=== PATIENT | male | born 1955 | race African-American/Black ===

== ENCOUNTER 2018-05-12 13:52 | Outpatient (RCR) | payer OTHER ==
[~2018-05-12 13:52] MED LIST: FLEXERIL 1010 MG/TAB PO; NO HOME MEDICATIONS; NORCO 325 MG-51 TAB PO
[2018-06-30] MEDS ORDERED: PRINIVIL10 MG PO (09:39)
[2018-06-30] MEDS ORDERED: LEVAQUIN 5500 MG/TA1 PO (09:40)
== END 2018-07-20 | disposition home or self-care (01) ==
LOC: WSOH
DX: S46.012A Strain of muscle(s) and tendon(s) of the rotator cuff of left shoulder, initial encounter (principal); X50.0XXA Overexertion from strenuous movement or load, initial encounter; Y92.214 College as the place of occurrence of the external cause; Y99.0 Civilian activity done for income or pay; Z79.899 Other long term (current) drug therapy

== ENCOUNTER 2018-05-27 12:05 | Inpatient (IN) | payer BC ==
[~2018-05-27] VITALS: Ht 175.3 cm; Wt 75.6 kg
[2018-06-30] VITALS (11 sets, daily range): BP systolic 132–162; BP diastolic 70–97; PULSE 74–112; TEMP 97.2–98.6
[2018-06-30] MEDS ORDERED: PRINIVIL10 MG PO (09:39)
[2018-06-30] MEDS ORDERED: LEVAQUIN 5500 MG/TA1 PO (09:40)
[2018-07-01 02:49] VITALS: BP 128/76; PULSE 109; TEMP 99.5
[2018-07-01 06:31] LABS: BASO % 0.1 % (0.0-2.0); GRAN # 8.1 (1.4-6.5); GRAN % 81.3 % (42.2-75.2); HEMOGLOBIN 12.7 g/dl (13.5-18.0); LYMPH # 0.8 (1.2-3.4); LYMPH % 7.9 % (20.0-51.0); MEAN CELL VOLUME 86 fl (80.0-100.0); MEAN CORPUSCULAR HEMOGLOBIN 30 pg (27.0-31.0); MEAN CORPUSCULAR HGB CONC 34 g/dl (33.0-37.0); MEAN PLATELET VOLUME 11.8 fl (7.4-10.4); MONO % 10.5 % (1.7-9.3); PLATELET COUNT 237 K/mm3 (130-400); REDCELL DISTRIBUTION WIDTH-CV 13.2 % (11.5-14.5)
[2018-07-01 06:47] LABS: CALCIUM 8.6 mg/dL (8.4-10.2); CREATININE, serum 0.99 mg/dL (0.66-1.25)
[2018-07-01 08:29] VITALS: BP 143/83; PULSE 96; TEMP 98.8
[2018-07-01 12:17] VITALS: BP 142/85; PULSE 94; TEMP 97.9
[2018-07-01 15:16] VITALS: BP 151/79; PULSE 94; TEMP 98.3
[2018-07-01 17:43] VITALS: BP 143/45; PULSE 79; TEMP 97.5
[2018-07-01 21:07] VITALS: BP 160/95; PULSE 88; TEMP 98.5
[2018-07-02 00:10] VITALS: BP 146/83; PULSE 92
[2018-07-02 03:16] VITALS: BP 138/78; PULSE 77; TEMP 98.3
[2018-07-02 07:45] VITALS: BP 135/81; PULSE 65; TEMP 97.5
== END 2018-07-02 12:54 | disposition home or self-care (01) | DRG 708 ==
LOC: INPTSU 06-30 08:56 → SURG 06-30 08:56
PROVIDERS: Urology
PROC: 07BC4ZX Excision of Pelvis Lymphatic, Percutaneous Endoscopic Approach, Diagnostic (ICD-10-PCS; 2018-06-30)
PROC: 8E0W4CZ Robotic Assisted Procedure of Trunk Region, Percutaneous Endoscopic Approach (ICD-10-PCS; 2018-06-30)
PROC: 0VT04ZZ Resection of Prostate, Percutaneous Endoscopic Approach (ICD-10-PCS; principal; 2018-06-30 11:00)
DX: C61 Malignant neoplasm of prostate (principal)
CPT/HCPCS: A9284; C1713; J0690; J1100; J1885; J1956; J2405; J2704; J2710; J3010; J7120

== ENCOUNTER 2019-05-04 10:18 | Outpatient (RCR) | payer OTHER ==
[~2019-05-04 10:18] MED LIST changes: +LEVAQUIN 5500 MG/TA1 PO; +PRINIVIL10 MG PO
== END 2019-05-07 09:33 | disposition home or self-care (01) ==
LOC: WSOH 10:18
DX: S93.402A Sprain of unspecified ligament of left ankle, initial encounter (principal); X50.0XXA Overexertion from strenuous movement or load, initial encounter; Y92.214 College as the place of occurrence of the external cause; Y99.0 Civilian activity done for income or pay; I10 Essential (primary) hypertension; Z79.899 Other long term (current) drug therapy